=== PATIENT | female | born 1970 | race Caucasian/White ===

== ENCOUNTER 2017-09-22 12:40 | Emergency (ER) | payer MEDICAID ==
[~2017-09-22] VITALS: Ht 149.9 cm; Wt 75.9 kg
[2017-09-22 12:57] LABS: GLUCOSE,POINT OF CARE 247 MG/DL (70-110)
[2017-09-22] MEDS ORDERED: LISI-660 PO (13:01)
[2017-09-22] MEDS ORDERED: ATEN25TA PO (13:01)
[2017-09-22] MEDS ORDERED: METF500T6 PO (13:01)
[2017-09-22] MEDS ORDERED: IBUPROFEN 800 MG TABLET PO ONE (14:15)
[2017-09-22 15:33] VITALS: BP 149/95
== END 2017-09-22 16:03 | disposition home or self-care (01) ==
LOC: EMS 12:41
DX: S52.501A Unspecified fracture of the lower end of right radius, initial encounter for closed fracture (principal); E11.9 Type 2 diabetes mellitus without complications; I10 Essential (primary) hypertension; W18.40XA Slipping, tripping and stumbling without falling, unspecified, initial encounter; Y93.01 Activity, walking, marching and hiking; Y92.89 Other specified places as the place of occurrence of the external cause; Y99.8 Other external cause status
CPT/HCPCS: 99284